=== PATIENT | female | born 1945 | race Caucasian/White ===

== ENCOUNTER → 2020-07-26 10:35 | Outpatient (CLI) | payer MEDICARE, OTHER, SELFPAY ==
--- NOTE | 2020-07-26 | DI.CT.S_ITS ---
PROCEDURE: CT ABDOMEN PELVIS W CON INDICATIONS: Abdominal distension (gaseous) TECHNIQUE: After the administration of oral and intravenous contrast, 5 mm thick sections acquired from the diaphragms to the symphysis. 5 mm thick coronal and sagittal reformats were performed. For radiation dose reduction, the following was used: automated exposure control, adjustment of mA and/or kV according to patient size. COMPARISON: None. FINDINGS: Image quality: Excellent. ABDOMEN: Lung bases: Lung bases are clear. Heart size is normal. Solid organs: Liver is normal in size and enhancement. Gallbladder is unremarkable. Biliary system is non-dilated. Pancreas enhances normally. Spleen is normal in size and enhancement. There is thickening of the left adrenal gland without focal adrenal nodules visualized. No right-sided adrenal nodules. Kidneys are normal in size and enhancement, without hydronephrosis. There is a heterogeneously enhancing partially exophytic mass in the medial mid right kidney measuring 1.9 x 1.7 cm in transverse dimension (image 24, series 2). There is also a 1.3 cm (image 25, series 2) heterogeneous hypodensity in the posterior aspect of the left mid kidney. Several other small bilateral renal hypodensities are incompletely characterized but favored to represent cysts. Peritoneum and bowel: Stomach, small bowel, and colon loops are normal in caliber and wall thickness. Scattered descending and sigmoid colonic diverticula without acute diverticulitis. There is a large left ventral/periumbilical hernia with the neck measuring approximately 6.6 cm in diameter (image 44, series 2) which contains a segment of transverse colon and moderate segment of small bowel. No evidence for obstruction or incarceration. No free fluid or air. Nodes and vessels: No retroperitoneal or mesenteric adenopathy. Scattered atherosclerotic calcifications of the abdominal aorta and iliac vessels without aneurysmal dilatation. Inferior vena cava appears widely patent. Miscellaneous: Large left ventral/periumbilical hernia containing segment of transverse colon and small bowel without evidence for obstruction or incarceration. This was detailed above. PELVIS: Genitourinary: Bladder wall thickness is normal. Multiple surgical clips are noted in the pelvis. Miscellaneous: No inguinal hernias or adenopathy. Bones: No suspicious bony lesions. No acute vertebral body compression fractures. IMPRESSION: 1. Suspicious bilateral renal masses measuring approximately 1.9 cm on the right and 1.3 cm on left. Further evaluation and characterization with dedicated renal mass CT or MRI is recommended. 2. Large left ventral/periumbilical hernia containing segment of transverse colon and small bowel without evidence for obstruction or incarceration. 3. Colonic diverticulosis without acute diverticulitis. Dictated by: Sage Montenegro M.D. on 07/26/2020 at 14:00 Approved by: Sage Montenegro M.D. on 07/26/2020 at 14:39
== END ==
PROVIDERS: PCP Physician Assistant Medical; Referring Provider Physician Assistant Medical; Visit Provider Physician Assistant Medical
DX: R14.0 Abdominal distension (gaseous) (principal); R10.30 Lower abdominal pain, unspecified; N28.89 Other specified disorders of kidney and ureter; K43.9 Ventral hernia without obstruction or gangrene; K57.30 Diverticulosis of large intestine without perforation or abscess without bleeding
CPT/HCPCS: 74177; Q9967

== ENCOUNTER → 2020-08-04 11:42 | Outpatient (CLI) | payer MEDICARE, OTHER, SELFPAY ==
--- NOTE | 2020-08-04 11:47 | DI.MRI.S_ITS ---
PROCEDURE: MR ABDOMEN WO/W CON INDICATIONS: Other specified disorders of kidney and ureter TECHNIQUE: Coronal HASTE through abdomen and pelvis; axial 2D FLASH in- and [id number] (with and without fat saturation), and breath-hold T2 FSE from the hepatic dome to the bottom of the kidneys. Coronal HASTE MR urogram of kidneys and bladder. Dynamic coronal VIBE during IV gadolinium administration; postgadolinium axial VIBE or 2D FLASH with fat saturation from the hepatic dome through the kidneys. COMPARISON: [facility], CT, CT ABDOMEN PELVIS W CON, 07/26/2020, 11:40. FINDINGS: Image quality: The patient is nonverbal, and unable to fully cooperate with the examination.. Genitourinary system: The inability to suspend respiration during image acquisition reduces quality of visualization. In this clinical circumstance CT scanning in the future would be a preferred modality. Note is made of a corresponding lesion involving the superior cortex of the right kidney anteriorly, measuring approximately 1.5 cm in dimension, and showing elevated T2 fluid signal on precontrast imaging and documenting elevated contrast enhancement on postcontrast T1 imaging. The smaller area of prior CT concern at the lateral cortex of the left kidney is not identified as a discrete lesion by this examination, with the qualification of the limitations discussed above. Other solid organs: Ventral hernia, periumbilical, large, previously documented at the midline and left aspect of the abdomen/pelvis junction containing bowel loops in the subcutaneous fat. No change. Nodes and vessels: No abnormality seen. Bowel and peritoneum: No additional abnormality seen. Lung bases: No abnormality found.. Bones and soft tissues: No abnormality seen other than the ventral body wall defect allowing the large herniation discussed above.. IMPRESSION: 1. The study is somewhat compromised by the inability of the patient to suspend respiration and cooperate with the examination. If subsequent cross-sectional imaging as clinically desired CT scanning would be recommended instead of MRI. 2. The prior CT scanning 07/26/20 had identified bilateral abnormalities. The current examination shows what appears to be a 1.5 cm enhancing rounded sharply demarcated mass at the upper anterior cortex of the right kidney. The 2nd area of concern, left mid kidney laterally, shows no abnormality by this examination. 3. Follow-up targeted ultrasound scanning likely is warranted at this time to determine whether the abnormalities seen by CT scan would be detectable accurately by ultrasound. If so, follow-up by ultrasound could be utilized at a schedule established by urology consultation. 4. Periumbilical body wall defect allowing bowel loops and mesenteric/omental fat to herniate into the subcutaneous fat of the abdomen/pelvis junction at and to the left of midline. No sign of incarceration or strangulation of the herniated contents identified. Dictated by: Jan Oliver M.D. on 08/04/2020 at 15:03 Approved by: Jan Oliver M.D. on 08/04/2020 at 15:20
== END ==
PROVIDERS: PCP Physician Assistant Medical; Referring Provider Physician Assistant Medical; Visit Provider Physician Assistant Medical
DX: N28.89 Other specified disorders of kidney and ureter (principal)
CPT/HCPCS: 74183; A9579